=== PATIENT | male | born 1930 | race Caucasian/White ===

== ENCOUNTER 2016-10-19 14:55 | Emergency (ER) | payer MEDICARE ==
[~2016-10-19] VITALS: Ht 177.8 cm; Wt 69.0 kg
[2016-10-19 15:47] LABS: BILIRUBIN,URINE Negative (Negative); CLARITY,URINE Cloudy; GLUCOSE, URINE (UA) Negative (Negative); LEUKOCYTE ESTERASE ,URINE Negative (Negative); PH,URINE 5.5 (5.0 - 8.0); UROBILINOGEN,URINE 0.2 mg/dL (0.2-1.0)
[2016-10-19 15:48] LABS: BASOPHILS % (AUTO) 1 % (0-2); EOSINOPHILS # (AUTO) 0.1 10^3uL; EOSINOPHILS % (AUTO) 1 % (0-4); LYMPHOCYTES # (AUTO) 1.4 X10^3; MEAN CORPUSCULAR HGB CONC 34.5 g/dL (31.0-37.0); MEAN CORPUSCULAR VOLUME 92 FL (80-100); MONOCYTES # (AUTO) 0.5 X10^3; MONOCYTES % (AUTO) 11 % (3-11); NEUTROPHILS # (AUTO) 2.4 X10^3; NEUTROPHILS % (AUTO) 56 % (51-67); PLATELET COUNT 265 10^3uL (150-450); WHITE BLOOD COUNT 4.35 10^3uL (4.0-11.0)
[2016-10-19 15:52] LABS: MEAN CORPUSCULAR HEMOGLOBIN 31.7 PG (26.0-34.0)
[2016-10-19 15:52] LABS: COLOR,URINE Dark Yellow
[2016-10-19 15:57] LABS: ALBUMIN 3.9 g/dL (3.4-5.0); CALCULATED IONIZED CALCIUM 3.9 mg/dL (3.8-4.6); TOTAL PROTEIN 7.2 g/dL (6.4-8.5)
--- NOTE | 2016-10-19 16:23 | NUR ---
family in room
[2016-10-19 17:53] VITALS: BP 145/65
== END 2016-10-19 18:47 | disposition home or self-care (01) ==
LOC: ED 14:59
DX: G89.29 Other chronic pain (principal); M25.562 Pain in left knee; M25.561 Pain in right knee; M79.89 Other specified soft tissue disorders; Z85.46 Personal history of malignant neoplasm of prostate; Z85.89 Personal history of malignant neoplasm of other organs and systems
CPT/HCPCS: 36415; 80053; 81003; 84443; 84550; 85025; 85379; 85610; 86140; 99283; 99284